=== PATIENT | male | born 1935 | race Caucasian/White ===

== ENCOUNTER 2017-02-14 06:01 | Inpatient (IN) | payer MEDICARE, OTHER ==
[2017-02-14] VITALS (10 sets, daily range): BP systolic 105–153; BP diastolic 54–88; BMI 22.2
[~2017-02-14] VITALS: Ht 177.8 cm; Wt 70.3 kg
--- NOTE | ~2017-02-14 | OP ---
PATIENT NAME: LILY KWAN MEDICAL RECORD: [id number] :37 LOCATION:[id number] ADMISSION DATE:02/14/17 SURGEON: HARIS BAZAN MD DATE OF OPERATION: 02/14/2017 DATE OF OPERATION: 02/14/2017 PREOPERATIVE DIAGNOSES: 1. Colon polyp. 2. History of colon cancer, status post right hemicolectomy. POSTOPERATIVE DIAGNOSES: 1. Colon polyp. 2. History of colon cancer, status post right hemicolectomy. PROCEDURE: 1. Laparoscopic converted to open left hemicolectomy. 2. Small bowel resection with anastomosis. 3. Laparoscopic and open lysis of adhesions. SURGEON: Haris Bazan MD REPORT OF PROCEDURE: The patient's abdomen was prepped and draped in sterile fashion. A skin incision was made in the lower abdomen through the midline using an old scar. Electrocautery was used to dissect through subcutaneous tissues. We entered the abdominal cavity. Once inside, I could see there were a lot of adhesions of the small bowel and omentum to the anterior abdominal wall in the midline from the previous incision site. A tedious dissection was performed to try and tease these down, but there was an enterotomy that was performed. This enterotomy was large enough that did require a small bowel resection with primary anastomosis. This was done with a 45 blue load Endo-CHRISTIAN stapler. At the conclusion of this, the enterotomies were closed with a 30 blue load TA stapler. Once this bowel was placed back into the abdominal cavity, then a Gelport was inserted and the abdomen was insufflated. A 5-mm trocar within the Gelport was used to place another 5-mm trocar in the right lateral abdomen. A 12-mm trocar just anterior to the right anterior superior iliac crest and a final 5-mm trocar just to the right of midline in the right upper quadrant. Due to the patient's previous scar tissue of the abdomen, it was very difficult to distend the abdomen. The patient was paralyzed and insufflation was then increased to 18, but even this, there was not enough for him to performed hand-assisted surgery. The patient had a large amount of adhesions present. I took these down laparoscopically and began our dissection of the white line of Toldt on the left pericolic gutter. As we continued this dissection, It just became difficult to perform any maneuvers with the tightness of the patient's abdominal cavity. At this point, I decided to just open up the abdomen. Once inside, I took down a few more adhesions of the small bowel to the abdominal wall and to each other. Once I had the adhesions freed up, the splenic flexure was mobilized. I was able to see the tattoo in the left mid colon. This section of the colon was excised using a 45 blue load Endo-CHRISTIAN stapler and the mesentery was taken down using sequential clamp and tie technique with 3-0 silks. The specimen was opened up and I could see the small polyp present within it. This was sent off for permanent specimen. The proximal transverse colon was then mobilized down and an opening was made in the proximal sigmoid colon and a 29 EEA anvil was inserted. A pursestring was sutured down tightly around this. We then made a small opening through the ____ OPERATIVE REPORT [id number] LILY KWAN transverse colon and inserted the 29 EEA stapler. The stapler extended all the way to the end of the transverse colon and we performed an end-to-end anastomosis. There were 2 donuts present at the conclusion of this. We then oversewed the staple line using Lemberted 3-0 silks. The opening in the transverse colon was then closed with a 30 blue load TA stapler and oversewn with Lemberted 3-0 silks. We then irrigated out the abdomen and assured there was no sign of any bleeding or bile leakage. At this point, the midline fascia was closed with running #1 loop PDS times 2. The subcutaneous tissues were irrigated out and reapproximated with running 3-0 Vicryl. The 12-mm trocar site fascia was closed with a single interrupted 0 Vicryl. Skin incisions were all closed with june. An Jorge drape was uses a wound protector throughout the open portion of the case. COMPLICATIONS: None. CONDITION: Stable. ANESTHESIA: General endotracheal. BLOOD LOSS: 50 mL. TRANSINT:[id number] Voice Confirmation ID: [id number] DOCUMENT ID: [id number] HARIS BAZAN MD CC: KARISHMA RIZVI MD and ZAHIDA FRANK MD [id number] DICTATION DATE: 02/14/17 1244 TICK SEWER: 02/14/17 1338 ADM IN [facility] [address] [place] [address]
[~2017-02-14 06:01] MED LIST: OMEPRAZOLE20 M1 PO
[2017-02-14 07:20] LABS: BASOPHILS 0.3 % (0.0-2.0); EOSINOPHILS 1.3 % (0-7); HEMATOCRIT 44.7 % (42.0-54.0); HEMOGLOBIN 14.9 g/dL (13.5-17.5); LYMPHOCYTES 29.4 % (15-50); MCH 31.1 pg (26.0-34.0); MCHC 33.3 g/dL (31.0-37.0); MCV 93.3 fL (80.0-100.0); MEAN PLATELET VOLUME 9.9 fL (7.4-10.4); PLATELET COUNT 184 10x3/uL (130-400); RBC 4.79 10x6/uL (4.20-6.10); WBC 6.2 10x3/uL (4.8-10.8)
[2017-02-14 07:33] LABS: ANION GAP 9.5 mmol/L (8-16); CALCIUM 8.4 mg/dL (8.5-10.1); CARBON DIOXIDE 30.6 mmol/L (21.0-32.0); CREATININE - SERUM 1.5 mg/dL (0.6-1.3); POTASSIUM - SERUM 5.1 mmol/L (3.5-5.1)
[2017-02-14 07:45] LABS: APTT 41.7 SECONDS (22.8-39.4); INR 1.06 (0.85-1.17); PROTIME 13.7 SECONDS (11.6-15.0)
--- NOTE | 2017-02-14 10:11 | NUR ---
DR BAZAN WASHED AND IRRIGATED ANAL AREA BEFORE PREP, ESTELA.
--- NOTE | 2017-02-14 13:20 | NUR ---
RECEIVED TO ROOM 2220 AT THIS TIME FROM THE RECOVERY ROOM VIA BED. AND HOSPITAL STAFF AT [facility]. POST OP VITAL SIGNS INITIATED PER PROTOCOL. OXYGEN ON 1.5L VIA NC TO MAINTAIN SATURATIONS GREATER THAN 92%. MEDICATIONS ADMINISTERED PER ORDER. SHREDDING MACHINE OPERATOR INITIATED AND WINESSED. SCD'S ON AND IN WORKING ORDER. MARTINEZ CATHETER PATENT AND DRAINING TO GRAVITY. BED ALARM ON WITH SRX2 AND BED IN LOWEST POSITION WITH WHEELS LOCKED. LAP SITES X3 TO ABDOMEN WITH AND LOWER MIDLINE INCISION C/D/I WITH THE EXCEPTION OF LAP SITE TO RIGHT SIDE OF ABDOMEN WITH SMALL AMOUNT OF DRIED BLOODY DRAINAGE. ORIENTED PT'S SPOUSE TO ROOM AND NURSING UNIT. CALL LIGHT IN REACH, WILL CONTINUE WITH PLAN OF CARE.
--- NOTE | 2017-02-14 20:00 | NUR ---
ASSESSMENT PER FLOWSHEET. IV PATENT RIGHT ARM OF NS AT 125 CC'S/HR SITE CLEAR. REFLOW OPERATOR OF DILAUDID IN USE WITH SETTINGS AT 0.2MG Q10MIN W/4MG Q4H L/O. AT BEDSIDE. MARTINEZ TO BEDSIDE DRAINAGE WITH JARRET URINE. SCD'S ON. O2 ON 1L/M PER NC. BED ALARM ON. SR UP X2 CALL LIGHT WITHIN REACH.
--- NOTE | 2017-02-14 22:00 | NUR ---
MEDS GIVEN PER DEC. PT EATING ICE CHIPS NGT TO LIWS WITH DARK BROWN DRAINAGE NOTED. INCISIONS TO ABDOMEN C/D/I.
[2017-02-15] VITALS: BP 111/56
--- NOTE | 2017-02-15 | NUR ---
EYES CLOSED RESPIRATIONS WITH EASE AND UNLABORED.
--- NOTE | 2017-02-15 02:13 | NUR ---
RESTING QUIETLY SCD'S ON.
[2017-02-15 04:00] VITALS: BP 120/51
[2017-02-15 05:34] LABS: BASOPHILS 0.1 % (0.0-2.0); EOSINOPHILS 0 % (0-7); HEMATOCRIT 42.1 % (42.0-54.0); HEMOGLOBIN 13.8 g/dL (13.5-17.5); IMMATURE GRANULOCYTES 0.4 % (0-5); LYMPHOCYTES 7.3 % (15-50); MCH 30.6 pg (26.0-34.0); MCHC 32.8 g/dL (31.0-37.0); MCV 93.3 fL (80.0-100.0); MEAN PLATELET VOLUME 10.3 fL (7.4-10.4); MONOCYTES 4.8 % (2-11); NEUTROPHILS 87.4 % (40-80); PLATELET COUNT 188 10x3/uL (130-400); RBC 4.51 10x6/uL (4.20-6.10); RDW 13.7 % (11.5-14.5)
[2017-02-15 05:49] LABS: WBC 18.8 10x3/uL (4.8-10.8)
[2017-02-15 06:01] LABS: CALCIUM 8.1 mg/dL (8.5-10.1); CARBON DIOXIDE 25.5 mmol/L (21.0-32.0); CREATININE - SERUM 1.4 mg/dL (0.6-1.3)
[2017-02-15 06:23] LABS: ANION GAP 11.9 mmol/L (8-16); POTASSIUM - SERUM 5.4 mmol/L (3.5-5.1)
--- NOTE | 2017-02-15 08:10 | NUR ---
AWAKE AND ALERT AT THIS TIME. NG TUBE TO RIGHT NARE PATENT WITH DARK, BLACK TO BLOODY DRAINAGE. MARTINEZ PATENT AND DRAINING TO GRAVITY. INSTRUCTED PT ON PROPER USE OF INCENTIVE SPIROMETER AND PT DEMONSTRATED WITH 1,500 ML OF INSPIRATORY VOLUME. ASSESSMENT PERFORMED PER FLOWSHEET. IV TO RIGHT FOREARM PATENT WITH NO S/S OF INFILTRATION PRESENT. CALL LIGHT IN REACH, WILL CONTINUE WITH PLAN OF CARE. SCD'S AND BED ALARM ON.
[2017-02-15 08:24] VITALS: BP 135/65
--- NOTE | 2017-02-15 09:45 | NUR ---
MARTINEZ CATHETER D/C WITH CATH TIP INTACT. PT TOLERATED WITHOUT COMPLAINTS. PROVIDED PT WITH URINAL.
--- NOTE | 2017-02-15 11:06 | NUR ---
SCHEDULED MEDICATIONS ADMINISTERED WITHOUT DIFFICULTY AT THIS TIME. PT AMBULATORY PER SELF. CHLORASEPTIC SPRAY IN USE FOR SORE THROAT. DENIES PAIN OR NEEDS AT THIS TIME. NG TUBE REMAINS PATENT, BUT CLAMPED SO THAT PT CAN AMBULATE AROUND ROOM SAFELY. MACHINE SET UP IN USE FOR PAIN, CALL LIGHT IN REACH. WILL CONTINUE WITH PLAN OF CARE.
[2017-02-15 11:59] VITALS: BP 132/81
[2017-02-15 13:35] VITALS: Ht 177.8 cm; Wt 70.3 kg
--- NOTE | 2017-02-15 15:42 | NUR ---
Patient Name: LILY KWAN Admission Status: Elective Accout number: [id number] Admission Date: 02-14-2017 : 1935 Admission Diagnosis: Attending: HERIBERTO Current LOS: 1 Anticipated DC Date: 02-20-2017 Planned Disposition: Home or Self Care Primary Insurance: MEDICARE A & B Discharge Planning Comments: CM MET WITH PATIENT AND (JULIO CÉSAR) REGARDING D/C NEEDS AND PLANS. PATIENT STATED HIS WILL DRIVE HER HOME AT DISCHARGE. PATIENT STATED THERE IS A FLIGHT OF STAIRS W/RAILS TO GO TO [place] WHICH THEY DO NOT USE. PATIENT IS INDEPENDENT WITH HIS CARE AND HAS NO DME AT HOME. PATIENTS PCP IS DR. RIZVI AND PHARMACY IS [facility] AT [facility] ON [address]. PATIENT HAS NOT HAD HOME HEALTH AND DOES NOT WANT IT AT DISCHARGE. CM WILL CONTINUE TO FOLLOW PATIENT WITH D/C NEEDS AND PLANS. PCP DR. DMITRI MUJICA AT [facility] [phone] JULIO CÉSAR () [phone] Product Owner: Darcy Ventura Is the patient Alert and Oriented? Yes 0 * How many steps to enter\exit or inside your home? 1 FLIGHT 0 * PCP DR. RIZVI 0 * Pharmacy [facility] 0 * Preadmission Environment Home with Family 0 * ADLs Independent 0 * Equipment None 0 * List name and contact numbers for known caregivers / representatives who currently or will assist patient after discharge: JULIO CÉSAR () [phone] * Community resources currently utilized None 0 * Additional services required to return to the preadmission environment? Yes 0 * Can the patient safely return to the preadmission environment? Yes 0 * Has this patient been hospitalized within the prior 30 days at any hospital? No 0 Grand Total: 0
[2017-02-15 16:12] VITALS: BP 117/75
[2017-02-15 20:00] VITALS: BP 119/65
--- NOTE | 2017-02-15 20:00 | NUR ---
ASSESSMENT PER FLOWSHEET. ABDOMINAL INCISIONS WITH DRESSING C/D/I. IV PATENT RT ARM OF D51/2NS AT 125 CC'S/HR. SKATING CARHOP OF DILAUDID IN USE WITH ETTINGS AT 0.2MG Q10MIN W/4MG Q4H L/O. VOIDS IN URINAL. DENIES NEEDS. SR UP X2 CALL LIGHT WITHIN REACH. SCD'S ON. NGT PATENT RT NARE CONNECTED TO LIWS DARK BROWN DRAINAGE NOTED.
--- NOTE | 2017-02-15 21:30 | NUR ---
MEDS GIVEN PER MAR.
[2017-02-16] VITALS: BP 120/63
--- NOTE | 2017-02-16 | NUR ---
EYES CLOSED RESPIRATIONS WITH EASE AND UNLABORED.
[2017-02-16 03:00] VITALS: BP 121/72
--- NOTE | 2017-02-16 03:00 | NUR ---
RESTING QUIETLY DENIES NEEDS.
--- NOTE | 2017-02-16 04:39 | NUR ---
NO CHANGES IN ASSESSMENT.
[2017-02-16 05:31] LABS: BASOPHILS 0 % (0.0-2.0); EOSINOPHILS 0.1 % (0-7); HEMATOCRIT 39.9 % (42.0-54.0); HEMOGLOBIN 13.1 g/dL (13.5-17.5); IMMATURE GRANULOCYTES 0.2 % (0-5); LYMPHOCYTES 14.3 % (15-50); MCH 30.7 pg (26.0-34.0); MCHC 32.8 g/dL (31.0-37.0); MCV 93.4 fL (80.0-100.0); MEAN PLATELET VOLUME 10.1 fL (7.4-10.4); MONOCYTES 4.9 % (2-11); NEUTROPHILS 80.5 % (40-80); PLATELET COUNT 158 10x3/uL (130-400); RBC 4.27 10x6/uL (4.20-6.10); RDW 14.1 % (11.5-14.5)
[2017-02-16 05:37] LABS: ANION GAP 8.3 mmol/L (8-16); CALCIUM 8.4 mg/dL (8.5-10.1); CARBON DIOXIDE 28.9 mmol/L (21.0-32.0); CREATININE - SERUM 1.4 mg/dL (0.6-1.3)
[2017-02-16 05:38] LABS: WBC 13.8 10x3/uL (4.8-10.8)
[2017-02-16 05:40] LABS: POTASSIUM - SERUM 4.2 mmol/L (3.5-5.1)
--- NOTE | 2017-02-16 07:30 | NUR ---
ASSESSMENT PER FLOW SHEET.PT WITHOUT DISTRESS.UP IN ROOM READY FOR AMBULATING IN HALLS.MONITOR FOR NEEDS.
[2017-02-16 09:08] VITALS: BP 135/89
[2017-02-16 12:55] VITALS: BP 135/80
--- NOTE | 2017-02-16 13:56 | NUR ---
HAS AMBULATED IN HALLS FREQUENTLY.REQUEST NGT BE CLAMPED.REMAINS WITHOUT NAUSEA.WANTS NGT OUT.
[2017-02-16 16:59] VITALS: BP 124/67
[2017-02-16 20:00] VITALS: BP 127/70
[2017-02-17] VITALS: BP 130/75
[2017-02-17 04:00] VITALS: BP 128/72
--- NOTE | 2017-02-17 07:15 | NUR ---
REPORT RECEIVED FROM PLUMBING HARDWARE ASSEMBLER NURSE. CALL LIGHT IN REACH.
[2017-02-17 07:57] VITALS: BP 137/81
--- NOTE | 2017-02-17 08:00 | NUR ---
LYING IN BED,WITHOUT DISTRESS.CALL LIGHT IN REACH
--- NOTE | 2017-02-17 08:20 | NUR ---
ASSESSMENT COMPLETED. REFUSES LOVENOX AND SCDs. CALL LIGHT IN REACH. WILL CONTINUE WITH PLAN OF CARE.
--- NOTE | 2017-02-17 10:39 | NUR ---
DENIES NEEDS AT THIS TIME. CALL LIGHT IN REACH.
[2017-02-17] MEDS ORDERED: HYDROCODONE-APA1 TAB PO (11:10)
--- NOTE | 2017-02-17 12:59 | NUR ---
HAS AMBULATED IN HALLWAY TWICE WITH . STATES HE IS HAVING LOTS OF GAS PAIN. EXPLAINED TO HIM THAT IF HE CONTINUES TO WALK THAT WILL HELP. VERBALIZED UNDERSTANDING.
[2017-02-17 13:07] VITALS: BP 134/74
--- NOTE | 2017-02-17 13:13 | NUR ---
Nutrition Follow Up: Pt reported that his appetite was okay. He denied any N/V and said that he was tolerating full liquids okay. I>O. No BM since admit. Wt stable. Labs reviewed - Cr elevated. Meds noted including D5 1/2 NS @ 50 ml/hr, Zofran. Rec continue advancing diet as tolerated. RD following.
--- NOTE | 2017-02-17 14:07 | NUR ---
CM REASSESSMENT NOTE: PATIENT D/C HOME TODAY - DRIVING. DENIED HOME HEALTH OR ANY OTHER NEEDS.
--- NOTE | 2017-02-17 14:34 | NUR ---
SPOKE WITH DR. BAZAN. STATES WHEN PATIENT HAS A BM AND EATS BETTER HE CAN GO HOME. EXPLAINED TO PATIENT AND . BOTH VERBALIZED UNDERSTANDING.
[2017-02-17 15:09] VITALS: BP 140/79
--- NOTE | 2017-02-17 16:59 | NUR ---
STILL DENIES INCISIONAL PAIN. ONLY C/O GAS PAINS. STATES HE WILL AMBULATE IN HALLWAY AFTER HE EATS.
--- NOTE | 2017-02-17 18:04 | NUR ---
LARGE LIQUID STOOL NOTED. INFORMED DR. BAZAN. NEW ORDERS RECEIVED FOR DC.
--- NOTE | 2017-02-17 20:10 | NUR ---
DC INSTRUCTIONS EXPLAINED TO PATIENT AND . VERBALIZED UNDERSTANDING. RX FOR NORCO HANDED TO PATIENT. DC'D TO VEHICLE VIA WC WITH .
== END 2017-02-17 20:11 | disposition home or self-care (01) | DRG 331 ==
LOC: D.SDCHOLD 06:01 → D.MS 06:01 → D.SDCHOLD 14:00 → D.MS 02-17 20:11
PROVIDERS: Anesthesiology; ADMIT Surgery
PROC: 0DNL0ZZ Release Transverse Colon, Open Approach (ICD-10-PCS; 2017-02-14)
PROC: 0DTF0ZZ Resection of Right Large Intestine, Open Approach (ICD-10-PCS; 2017-02-14)
PROC: 0DN84ZZ Release Small Intestine, Percutaneous Endoscopic Approach (ICD-10-PCS; 2017-02-14)
PROC: 0DB80ZZ Excision of Small Intestine, Open Approach (ICD-10-PCS; principal; 2017-02-14 08:30)
DX: K63.5 Polyp of colon (principal); Z85.038 Personal history of other malignant neoplasm of large intestine; Z53.31 Laparoscopic surgical procedure converted to open procedure; K66.0 Peritoneal adhesions (postprocedural) (postinfection)

== ENCOUNTER → 2018-03-16 15:16 | Outpatient (CLI) | payer MEDICARE, OTHER ==
[2017-02-15 13:35] VITALS: BMI 22.2
[~2018-03-16 15:16] MED LIST changes: +HYDROCODONE-APA1 TAB PO
== END | disposition home or self-care (01) ==
LOC: D.LABREF 15:16
DX: Z85.038 Personal history of other malignant neoplasm of large intestine (principal)